=== PATIENT | male | born 1940 | race Caucasian/White ===

== ENCOUNTER 2019-09-08 09:54 | Observation (INO) ==
[2019-09-08] MEDS ORDERED: Isovue-370 500 ML BOTTLE IVP ONE ×2 (10:20→13:15)
[2019-09-08] MEDS ORDERED: 0.9 % Sodium Chloride 1,000 ML IVC STA (10:21)
[2019-09-08 11:02] LABS: Bilirubin,Urine Negative (Negative); Blood,Urine Negative (Negative); Clarity,Urine Clear (Clear); Color,Urine Yellow (Yellow); Glucose,Urine (UA) 250 mg/dL (Normal); Ketones,Urine Negative (Negative); Leukocyte Esterase,Urine Negative (Negative); Nitrite,Urine Negative (Negative); Protein,Urine Negative (Neg-Trace); Specific Gravity,Urine 1.022 (1.010-1.025); Urobilinogen,Urine Normal (Normal)
[2019-09-08 11:02] LABS: Basophils # 0.1 K/mcL (0.0-0.2); Basophils % 0.6 %; Eosinophils # 0.5 K/mcL (0.0-0.6); Eosinophils % 3.4 %; Hematocrit 30.6 % (37.5-50.1); Hemoglobin 9.9 g/dL (12.9-16.9); Immature Granulocytes % 0.4 % (0-4); Lymphocytes # 5.1 K/mcL (0.6-4.6); Lymphocytes % 36.8 %; Mean Corpuscular HGB Conc 32.4 g/dL (31.6-35.5); Mean Corpuscular Hemoglobin 30.8 pg (28.0-33.3); Mean Corpuscular Volume 95.3 fL (83.0-100.0); Mean Platelet Volume 10.5 fL (9.4-12.4); Monocytes # 0.9 K/mcL (0.0-1.3); Monocytes % 6.4 %; Neutrophils # 7.3 K/mcL (1.6-8.9); Nucleated Red Blood Cells 0.1 /100 WBC (0); Platelet Count 297 K/mcL (140-400); Red Blood Count 3.21 M/mcL (4.19-5.50); Red Cell Distribution Width 14.5 % (11.5-14.5); Segmented Neutrophils % 52.4 %; White Blood Count 13.9 K/mcL (4.3-11.1)
[2019-09-08 11:07] LABS: INR 1.1; Prothrombin Time 12.3 Seconds (9.4-12.1)
[2019-09-08 11:25] LABS: Alanine Aminotransferase 18 Units/L (7-52); Albumin 4.3 g/dL (3.5-5.7); Alkaline Phosphatase 60 Units/L (34-104); Aspartate Amino Transferase 19 Units/L (13-39); BUN/Creatinine Ratio 17 (6-26); Bilirubin,Direct 0.1 mg/dL (0.0-0.2); Bilirubin,Indirect 0.2 mg/dL (0.0-1.0); Bilirubin,Total 0.3 mg/dL (0.3-1.0); Blood Urea Nitrogen 18 mg/dL (8-23); Calcium 9.5 mg/dL (8.6-10.3); Carbon Dioxide 28 mEq/L (23-29); Chloride 104 mEq/L (98-107); Globulin 2.2 g/dL (2.4-3.5); Glucose 208 mg/dL (70-105); Osmolality,Calculated 290 (280-300); Potassium 3.9 mEq/L (3.5-5.1); Sodium 136 mEq/L (136-145); Total Protein 6.5 g/dL (6.4-8.9); eGFR For African Americans > 60 (> 60); eGFR For Non-African Americans > 60 (> 60)
[2019-09-08] MEDS ORDERED: Pantoprazole 40 MG VIAL IVP ONE (11:42)
[2019-09-08] MEDS ORDERED: Naloxone 0.4 MG/ML INJ IVP PRN (13:23)
[2019-09-08] MEDS ORDERED: Ondansetron 4 MG/2 ML VIAL IVP PRN (13:23)
[2019-09-08] MEDS ORDERED: D5% in Water 1,000 ML IVC PRN (13:26)
[2019-09-08] MEDS ORDERED: *HR* Dextrose 50 % in Water (Syg) 50 ML SYRINGE IVP PRN (13:26)
[2019-09-08] MEDS ORDERED: Dextrose Gel 15 GM/37.5 ML TUBE PO PRN ×2 (13:26)
[2019-09-08] MEDS: Insulin LISPRO 300 UNITS/3 ML VIAL SQ SCH ×2 (18:16→21:13)
[2019-09-08 18:22] LABS: Hematocrit 32.2 % (37.5-50.1); Hemoglobin 10.1 g/dL (12.9-16.9)
[2019-09-08] MEDS: 0.9 % Sodium Chloride 1,000 ML IVC SCH (18:26)
[2019-09-09 02:13] LABS: Basophils # 0.1 K/mcL (0.0-0.2); Basophils % 0.7 %; Eosinophils # 0.4 K/mcL (0.0-0.6); Eosinophils % 3.9 %; Hematocrit 28.4 % (37.5-50.1); Hemoglobin 9.2 g/dL (12.9-16.9); Immature Granulocytes % 0.2 % (0-4); Lymphocytes # 3.4 K/mcL (0.6-4.6); Mean Corpuscular HGB Conc 32.4 g/dL (31.6-35.5); Mean Corpuscular Hemoglobin 30.8 pg (28.0-33.3); Mean Platelet Volume 10.4 fL (9.4-12.4); Monocytes # 0.9 K/mcL (0.0-1.3); Monocytes % 8.3 %; Neutrophils # 6.4 K/mcL (1.6-8.9); Nucleated Red Blood Cells 0.3 /100 WBC (0); Platelet Count 310 K/mcL (140-400); Red Blood Count 2.99 M/mcL (4.19-5.50); Red Cell Distribution Width 14.4 % (11.5-14.5); Segmented Neutrophils % 56.9 %; White Blood Count 11.2 K/mcL (4.3-11.1)
[2019-09-09 02:33] LABS: BUN/Creatinine Ratio 12 (6-26); Blood Urea Nitrogen 11 mg/dL (8-23); Carbon Dioxide 28 mEq/L (23-29); Chloride 108 mEq/L (98-107); Glucose 92 mg/dL (70-105); Osmolality,Calculated 291 (280-300); Potassium 3.7 mEq/L (3.5-5.1); Sodium 141 mEq/L (136-145); eGFR For African Americans > 60 (> 60); eGFR For Non-African Americans > 60 (> 60)
[2019-09-09] MEDS: Insulin LISPRO 300 UNITS/3 ML VIAL SQ SCH ×2 (05:21→15:54)
[2019-09-09] MEDS ORDERED: Pantoprazole 40 MG VIAL IVP SCH (07:02)
[2019-09-09 07:05] VITALS: BP 97/54
[2019-09-09] MEDS ORDERED: 0.9 % Sodium Chloride 1,000 ML ONE (08:37)
[2019-09-09] MEDS ORDERED: Lidocaine -MPF 2% 2 ML VIAL ONE (10:56)
[2019-09-09] MEDS ORDERED: *HR* Propofol 200 MG/20 ML VIAL IVP ONE (10:56)
[2019-09-09] MEDS: 0.9 % Sodium Chloride 1,000 ML IVC SCH (16:50)
== END 2019-09-09 17:08 | disposition home or self-care (01) ==
LOC: EMEROOARM 09:54 → 3BNU 09:54
PROVIDERS: ADMIT Family Medicine; ATTEND Family Medicine